=== PATIENT | female | born 1960 | race Caucasian/White ===

== ENCOUNTER 2023-09-30 10:10 | Outpatient (RCR) | payer BC, SELFPAY | END 2023-09-30 23:59 | disposition home or self-care (01) | LOC: RPT 10:10 | PROVIDERS: ATTENDING PHYSICIAN Orthopaedic Surgery; FAMILY PHYSICIAN Internal Medicine | DX: Z47.89 Encounter for other orthopedic aftercare (principal); S82.892D Other fracture of left lower leg, subsequent encounter for closed fracture with routine healing; Z73.6 Limitation of activities due to disability; R20.0 Anesthesia of skin; R26.2 Difficulty in walking, not elsewhere classified; R26.89 Other abnormalities of gait and mobility | CPT/HCPCS: 97110; 97116; 97140; 97162 ==

== ENCOUNTER 2023-11-01 09:58 | Outpatient (RCR) | payer BC, SELFPAY | END 2023-11-01 23:59 | disposition home or self-care (01) | LOC: RPT 09:58 | PROVIDERS: ATTENDING PHYSICIAN Orthopaedic Surgery; FAMILY PHYSICIAN Internal Medicine | DX: S82.892S Other fracture of left lower leg, sequela (principal); Z73.6 Limitation of activities due to disability; M25.572 Pain in left ankle and joints of left foot | CPT/HCPCS: 97010; 97110; 97116; 97140; 97530; 97535 ==

== ENCOUNTER 2023-11-29 10:19 | Outpatient (RCR) | payer BC, SELFPAY | END 2023-11-29 23:59 | disposition home or self-care (01) | LOC: RPT 10:19 | PROVIDERS: ATTENDING PHYSICIAN Orthopaedic Surgery; FAMILY PHYSICIAN Internal Medicine | DX: S82.892D Other fracture of left lower leg, subsequent encounter for closed fracture with routine healing (principal); Z73.6 Limitation of activities due to disability | CPT/HCPCS: 97110; 97112; 97116; 97530 ==

== ENCOUNTER 2023-12-30 10:03 | Outpatient (RCR) | payer BC, SELFPAY | END 2023-12-30 23:59 | disposition home or self-care (01) | LOC: RPT 10:03 | PROVIDERS: ATTENDING PHYSICIAN Orthopaedic Surgery; FAMILY PHYSICIAN Internal Medicine | DX: S82.892D Other fracture of left lower leg, subsequent encounter for closed fracture with routine healing (principal); Z73.6 Limitation of activities due to disability; X58.XXXD Exposure to other specified factors, subsequent encounter | CPT/HCPCS: 97110; 97112; 97530 ==

== ENCOUNTER 2024-01-10 08:59 | Outpatient (RCR) | payer BC, SELFPAY | END 2024-01-10 10:06 | disposition home or self-care (01) | LOC: RPT 08:59 | PROVIDERS: ATTENDING PHYSICIAN Orthopaedic Surgery; FAMILY PHYSICIAN Internal Medicine | DX: S82.892S Other fracture of left lower leg, sequela (principal); Z73.6 Limitation of activities due to disability | CPT/HCPCS: 97110; 97112; 97140; 97530 ==

== ENCOUNTER → 2024-04-02 14:36 | Outpatient (REF) | payer MEDICARE, SELFPAY | LOC: RCS 14:36 | PROVIDERS: ATTENDING PHYSICIAN Internal Medicine Cardiovascular Disease; FAMILY PHYSICIAN Internal Medicine | DX: I34.0 Nonrheumatic mitral (valve) insufficiency (principal) | CPT/HCPCS: 93306 ==

== ENCOUNTER → 2024-07-16 14:20 | Outpatient (REF) | payer MEDICARE, SELFPAY | LOC: WDC 14:20 | PROVIDERS: ATTENDING PHYSICIAN Internal Medicine | DX: Z12.31 Encounter for screening mammogram for malignant neoplasm of breast (principal) | CPT/HCPCS: 77063; 77067 ==

== ENCOUNTER → 2024-07-21 14:14 | Outpatient (REF) | payer MEDICARE, SELFPAY | LOC: DHSLP 14:14 | PROVIDERS: ATTENDING PHYSICIAN Internal Medicine; FAMILY PHYSICIAN Internal Medicine | DX: G47.30 Sleep apnea, unspecified (principal); R06.83 Snoring | CPT/HCPCS: 95800 ==

== ENCOUNTER → 2024-07-22 09:32 | Outpatient (REF) | payer MEDICARE, SELFPAY | LOC: HWRAD 09:32 | PROVIDERS: ATTENDING PHYSICIAN Internal Medicine | DX: D21.4 Benign neoplasm of connective and other soft tissue of abdomen (principal); M95.4 Acquired deformity of chest and rib | CPT/HCPCS: 71120; 76705 ==